=== PATIENT | male | born 2000 | race African-American/Black ===

== ENCOUNTER 2021-01-19 12:47 | Emergency (ER) | payer BC, OTHER ==
[~2021-01-19] VITALS: Ht 172.7 cm; Wt 100.5 kg
[2021-01-19 12:52] VITALS: BP 118/67
[2021-01-19] MEDS ORDERED: KETOROLAC 30 MG/1 ML IM ONE (13:30)
[2021-01-19] MEDS ORDERED: KETOROLAC 60 MG/2 ML ONE (13:53)
--- NOTE | 2021-01-19 14:01 | NUR ---
PT REMAINS OVER IN IMAGING
--- NOTE | 2021-01-19 14:22 | NUR ---
PT BACK FROM IMAGING. PT DECLINES TORDAL INJECTION STATES HE IS AFRAID OF NEEDLES. PT STATES PAIN IS 2/10 AND IS TOLERABLE. PT ENCOURAGED TO CALL IF PAIN RETURNS
== END 2021-01-19 14:39 | disposition home or self-care (01) ==
LOC: ED 14:38
DX: S16.1XXA Strain of muscle, fascia and tendon at neck level, initial encounter (principal); M54.5 Low back pain; V49.09XA Driver injured in collision with other motor vehicles in nontraffic accident, initial encounter; Y93.89 Activity, other specified; Y92.410 Unspecified street and highway as the place of occurrence of the external cause; Y99.8 Other external cause status
CPT/HCPCS: 72020; 72050; 72110; 99284